=== PATIENT | female | born 2005 | race Caucasian/White ===

== ENCOUNTER 2023-11-05 13:21 | Emergency (ER) | payer BC, SELFPAY ==
[2023-11-05 13:22] VITALS: BP 138/79; PULSE 72; RESP 14; TEMP 36.3; O2SAT 97; BMI 34.3
--- NOTE | 2023-11-05 13:34 | VDLE_ITS ---
Reason For Study: Right leg swelling RIGHT GSV is normal. CFV is compressible, spontaneous, phasic, competent and demonstrates normal augmentation. FV is compressible, spontaneous, phasic, competent and demonstrates normal augmentation. POP V is compressible, spontaneous, phasic, competent and demonstrates normal augmentation. T/P Trunk is compressible. PTV is compressible. RT PerV is compressible. Procedure This is a venous duplex using B-mode, color flow and spectral Doppler. Exam performed portable in ED. A preliminary report was called and/or faxed to Dr. Ku. VL/Venous Duplex US, Unilateral Interpretation Summary There is no evidence of right lower extremity deep vein thrombosis. Right great saphenous vein appears patent and compressible segmentally. Ordering Physician: Juan M Ku Performed By: Renee Phelan RVT
--- NOTE | 2023-11-05 14:17 | ED.VIS.LOWEX ---
HPI History of Present Illness HPI Narrative: Patient presents with swelling to her right lower leg that began today. Patient states that gradually got worse today. Patient states it has since resolved. Patient states she went to an urgent care and was referred to the emergency department for possible DVT. Patient describes her pain as aching. Patient states nothing makes it worse and nothing makes it better. Patient denies any paresthesias or weakness. Patient denies any trauma or injury. Chief Complaint: Lower Extremity Injury Onset/Context/Timing Onset: Today Context: Gradual Onset Timing: Intermittent Quality of Pain: Aching Location: Right lower leg Worsened by: Nothing Relieved by: Nothing Associated Symptoms Associated Symptoms: Negative for Parasthesia, Weakness or Loss of Funtion PFSH [facility] Medical History (Updated 11/05/23 @ 14:[address] Juan M Ku DO) Anxiety Home Medications NK 11/05/23 [History Last Taken Unknown] Allergy/AdvReac Type Severity Reaction Status Date / Time No Known Allergies Allergy Verified 11/05/23 13:23 Surgical History no surgical history no surgical history Social History Smoking Status: Never smoker ROS ROS ED Constitutional Constitutional ED: Denies chills or fever(s) Eyes Eyes: Denies blurry vision or change in vision ENT ENT ED: Denies rhinorrhea or sore throat Cardiovascular Cardiovascular: Denies chest pain or palpitations Respiratory/Chest Respiratory/Chest: Denies cough or dyspnea Gastrointestinal Gastrointestinal: Denies nausea or vomiting Genitourinary Genitourinary ED: Denies dysuria or hematuria Musculoskeletal Musculoskeletal: Denies back pain or neck pain Integumentary Denies abscess or rash Neurologic Neurologic: Reports headache(s); Denies weakness Allergic/Immunologic Allergic/Immunologic ED: Denies mouth swelling or urticaria EXAM Physical Exam Const Vital Signs: 11/05/23 13:22 Temperature 97.4 F L Temperature Source Temporal Pulse Rate 72 Respiratory Rate 14 Blood Pressure 138/79 H Blood Pressure Mean 98 Pulse Ox 97 Oxygen Delivery Method Room Air Positive well nourished, well developed and obese General Appearance ED: well developed and NAD Nutritional Appearance: obese HEENT Reports moist mucous membranes Neck full ROM and supple Extremity Extremity Narrative: There is mild tenderness over the anterior aspect of the right lower leg. There is no edema or ecchymosis. There is no calf tenderness. There is no pain with dorsiflexion of the ankle. Pedal pulses are equal bilaterally. Sensation was intact to light touch in all digits. Capillary refill was less than 2 seconds in all digits. Neuro oriented x3, CN's II-XII intact bilaterally, moves all extremities and no sensory deficits noted Sensorium / Orientation: alert Motor Exam: strength 5/5 throughout Psych mental status grossly normal MDM MDM MDM Narrative Medical decision making narrative: Differential diagnosis includes DVT and muscle strain. Venous duplex of the right lower extremity will be obtained to assess for DVT. Radiography Diagnostic Testing: Venous duplex of the right lower extremity was obtained. There is no evidence of DVT. Treatment and Re-Evaluation Narrative: Patient was advised of her findings. Patient was instructed to ice and elevate the right lower leg. Patient was instructed to follow-up with her primary care physician in 5 to 7 days. Patient understood and was agreeable with the plan. All questions were answered. Discharge Plan Triage Chief Complaint: Lower Extremity Injury ED Provider: Juan M Ku Dx/Rx/DC Orders Clinical Impression: Pain in right lower leg, Obesity (BMI 30.0-34.9) Instructions: ED Pain, Acute, Uncertain Cause, ED Muscle Strain, Extremity Prescriptions: No Action NK Primary Care Provider: Care Physician,No Primary Referrals: Care Physician,No Primary [Primary Care Provider] - Doctor,Your [Non-Staff] - 5-7 Days Disposition Disposition: Home, Self Care
[2023-11-05 14:32] VITALS: BP 135/65; PULSE 77; RESP 14; TEMP 36.8; O2SAT 97
== END 2023-11-05 14:33 | disposition home or self-care (01) ==
PROVIDERS: Emergency Provider Emergency Medicine; Visit Provider Emergency Medicine
DX: M79.661 Pain in right lower leg (principal); E66.9 Obesity, unspecified
CPT/HCPCS: 93971; 99282